=== PATIENT | female | born 1990 | race Caucasian/White ===

== ENCOUNTER 2018-02-02 16:21 | Inpatient (IN) | payer MEDICAID ==
[~2018-02-02] VITALS: Ht 165.1 cm; Wt 73.2 kg
[2018-02-02 16:33] VITALS: Ht 165.1 cm; Wt 73.2 kg
[2018-02-02 16:57] LABS: UA SPECIFIC GRAVITY 1.025 (1.005-1.035); microscopic required? YES; urine erythrocyte NEGATIVE (NEGATIVE)
[2018-02-02 17:10] LABS: BASOPHIL % 0.5 % (0-2); PLATELET COUNT 230 x10^3mcL (130-400)
[2018-02-02 17:12] LABS: RED CELL DISTRIBUTION WIDTH 17.1 % (11.5-14.5)
[2018-02-02 17:13] LABS: CARBON DIOXIDE 24.5 mmol/L (21-32); CHLORIDE SERUM 115 mmol/L (98-107); CREATININE SERUM 0.9 mg/dL (0.6-1.0); GFR1 > 60 mL/min; GLUCOSE SERUM 117 mg/dL (74-106); POTASSIUM SERUM 3.8 mmol/L (3.5-5.1); SODIUM SERUM 138 mmol/L (136-145)
[2018-02-02 17:18] LABS: ALBUMIN 4.1 g/dL (3.4-5.0); ALKALINE PHOSPHATASE 155 U/L (46-116); ALT/SGPT 708 U/L (14-59); AST/SGOT 725 U/L (15-37); LIPASE 245 IU/L (73-393); TOTAL PROTEIN, SERUM 8.1 g/dL (6.4-8.2)
[2018-02-02 19:16] LABS: CHOLESTEROL/HDL RATIO 2.9; PHOSPHOROUS 4.1 mg/dL (2.5-4.9)
[2018-02-02 19:22] LABS: T3 TOTAL 0.96 ng/mL
[2018-02-02 19:58] VITALS: BP 98/67
[2018-02-02 20:00] LABS: FREE T4 0.9 ng/dL (0.76-1.46); FREE THYROXINE INDEX 2.4 ug/dL (1.4-4.5); T4(THYROXINE) 7.5 ug/dL (4.7-13.3)
[2018-02-02 20:15] LABS: AMPHETAMINE QUAL UR NONE DETECTED (NEG <=1000)
[2018-02-03 00:33] VITALS: BP 92/58
[2018-02-03 06:07] VITALS: BP 102/67
[2018-02-03 06:13] LABS: CALCIUM 8.1 mg/dL (8.5-10.1); CARBON DIOXIDE 22.2 mmol/L (21-32); CHLORIDE SERUM 110 mmol/L (98-107); CREATININE SERUM 0.8 mg/dL (0.6-1.0); GFR1 > 60 mL/min; GLUCOSE SERUM 93 mg/dL (74-106); MAGNESIUM 2.1 mg/dL (1.8-2.4); PHOSPHOROUS 4.4 mg/dL (2.5-4.9); POTASSIUM SERUM 3.8 mmol/L (3.5-5.1); SODIUM SERUM 143 mmol/L (136-145)
[2018-02-03 06:17] LABS: BASOPHIL % 0.3 % (0-2); PLATELET COUNT 170 x10^3mcL (130-400)
[2018-02-03 07:35] LABS: RED CELL DISTRIBUTION WIDTH 17.2 % (11.5-14.5)
[2018-02-03 09:54] LABS: BILIRUBIN DIRECT 1.65 mg/dL (0.0-0.2); BILIRUBIN TOTAL 2.9 mg/dL (0.20-1.00); TOTAL PROTEIN, SERUM 6.3 g/dL (6.4-8.2)
[2018-02-03 14:17] LABS: TOTAL IRON BINDING CAPACITY 348 ug/dL (250-450)
[2018-02-03 14:23] LABS: IRON 200 ug/dL (50-170)
[2018-02-03 14:40] LABS: RED BLOOD CELLS 4.56 M/mm3 (4.10-5.10)
[2018-02-03 17:27] VITALS: BP 118/72
[2018-02-03 22:02] VITALS: BP 97/57
[2018-02-04 05:55] VITALS: BP 100/58
[2018-02-04 06:23] LABS: CALCIUM 8.5 mg/dL (8.5-10.1); CARBON DIOXIDE 22.7 mmol/L (21-32); CHLORIDE SERUM 106 mmol/L (98-107); CREATININE SERUM 0.8 mg/dL (0.6-1.0); GFR1 > 60 mL/min; GLUCOSE SERUM 78 mg/dL (74-106); MAGNESIUM 1.8 mg/dL (1.8-2.4); PHOSPHOROUS 3.8 mg/dL (2.5-4.9); POTASSIUM SERUM 3.7 mmol/L (3.5-5.1); SODIUM SERUM 140 mmol/L (136-145)
[2018-02-04 06:48] LABS: BASOPHIL % 0.4 % (0-2); PLATELET COUNT 187 x10^3mcL (130-400)
[2018-02-04 06:50] LABS: RED CELL DISTRIBUTION WIDTH 17.8 % (11.5-14.5); rbc morphology (normal/abnorm) ABNORMAL (NORMAL)
[2018-02-04 08:50] VITALS: BP 100/58
[2018-02-04] MEDS ORDERED: TYL325 PO (09:01)
[2018-02-04] MEDS ORDERED: MOT800 PO (09:02)
[2018-02-04 09:19] VITALS: BP 97/55
[2018-02-04 11:48] LABS: BILIRUBIN DIRECT 1.31 mg/dL (0.0-0.2); BILIRUBIN TOTAL 2.17 mg/dL (0.20-1.00); TOTAL PROTEIN, SERUM 6.7 g/dL (6.4-8.2)
[2018-02-04 12:00] LABS: ALBUMIN 3.1 g/dL (3.4-5.0)
== END 2018-02-04 12:09 | disposition home or self-care (01) | DRG 263 ==
LOC: ED 16:21 → MU 18:20 → DU 18:20 → MU 02-03 12:51
PROVIDERS: Emergency Medicine; Family Medicine; Internal Medicine Gastroenterology; Surgery
PROC: BF131ZZ Fluoroscopy of Gallbladder and Bile Ducts using Low Osmolar Contrast (ICD-10-PCS; 2018-02-03)
PROC: 0FT44ZZ Resection of Gallbladder, Percutaneous Endoscopic Approach (ICD-10-PCS; principal; 2018-02-03 09:00)
DX: K80.01 Calculus of gallbladder with acute cholecystitis with obstruction (principal); N17.0 Acute kidney failure with tubular necrosis; N39.0 Urinary tract infection, site not specified; E80.6 Other disorders of bilirubin metabolism; D64.9 Anemia, unspecified; E83.51 Hypocalcemia; E87.8 Other disorders of electrolyte and fluid balance, not elsewhere classified; E44.0 Moderate protein-calorie malnutrition; Z68.27 Body mass index [BMI] 27.0-27.9, adult
CPT/HCPCS: 83880; 84439; 94150; C1887; J0330; J1170; J1885; J2175; J2250; J2270; J2405; J2543; J2704; J2710; J2765; J3010; J3490; J7030; J7120; Q0092; Q9967